=== PATIENT | female | born 1975 | race Hispanic/Latino ===

== ENCOUNTER 2016-08-15 09:34 | Emergency (ER) | payer MEDICAID ==
[2016-08-15 09:46] VITALS: BP 132/81
[2016-08-15] MEDS ORDERED: TORADOL IM ONE (10:03)
[2016-08-15] MEDS ORDERED: FLEXERIL PO ONE (10:04)
[2016-08-15] MEDS ORDERED: NORCO 7.5/325 PO ONE (10:04)
[2016-08-15] MEDS ORDERED: DELTASONE PO ONE (10:04)
--- NOTE | 2016-08-15 10:10 | Emergency Department Report ---
ED Back Pain/Injury HPI - General Chief Complaint: Back Pain/Injury Stated Complaint: LOWER BACK PAIN Time Seen by Provider: 08/15/16 10:03 Source: patient Limitations: No Limitations - History of Present Illness -: Gradual Similar Symptoms Previously: Yes Radiation: buttocks Severity: moderate Quality: sharp Consistency: constant Improves With: immobilization Worsens With: movement Associated Symptoms: denies other symptoms - Related Data Home Medications Medication Instructions Recorded Confirmed Last Taken Gabapentin [Neurontin] 400 mg PO TID 08/04/14 08/15/16 Unknown Previous Rx's Medication Instructions Recorded Last Taken Type Methocarbamol [Robaxin TAB] 750 mg PO Q8H PRN #20 tablet 08/15/16 Unknown Rx Prednisone [predniSONE 10 mg 10 mg PO .TAPER #1 tab.ds.pk 08/15/16 Unknown Rx (6-Day Pack, 21 Tabs)] Allergies Allergy/AdvReac Type Severity Reaction Status Date / Time No Known Allergies Allergy Verified 08/15/16 09:41 ED Review of Systems ROS: Stated complaint: LOWER BACK PAIN Other details as noted in HPI Patient complaining of nonradiating left lower back pain that gets worse with movement. Patient denies abdominal pain, nausea, vomiting, dysuria, abnormal vaginal discharge, or dyspareunia. Comment: All other systems reviewed and negative Constitutional: no symptoms reported Respiratory: no symptoms reported Cardiovascular: denies: chest pain, palpitations, dyspnea on exertion Gastrointestinal: denies: abdominal pain, nausea, vomiting, diarrhea, constipation Genitourinary: denies: urgency, dysuria, frequency, hematuria, discharge, abnormal menses, dyspareunia Musculoskeletal: back pain. denies: joint swelling, arthralgia, myalgia Skin: denies: rash, lesions Neurological: denies: headache, weakness, numbness, paresthesias, confusion, abnormal gait, vertigo ED Past Medical Hx - Past Medical History Hx Liver Disease: Yes (HEPATITIS C) Hx Arthritis: Yes Hx Seizures: Yes (x 1 from xanax withdrawl) Additional medical history: lumbar disc disease. NEUROPATHY - Surgical History Additional Surgical History: TUBAL LIGATION - Social History Smoking Status: Current Every Day Smoker Substance Use Type: Prescribed - Medications Home Medications: Home Medications Medication Instructions Recorded Confirmed Last Taken Type Gabapentin [Neurontin] 400 mg PO TID 08/04/14 08/15/16 Unknown History Methocarbamol [Robaxin TAB] 750 mg PO Q8H PRN #20 tablet 08/15/16 Unknown Rx Prednisone [predniSONE 10 mg 10 mg PO .TAPER #1 tab.ds.pk 08/15/16 Unknown Rx (6-Day Pack, 21 Tabs)] ED Physical Exam - General Limitations: No Limitations General appearance: alert, in no apparent distress - Head Head exam: Present: atraumatic - Eye Eye exam: Present: normal appearance, PERRL, EOMI Pupils: Present: normal accommodation - Neck Neck exam: Present: normal inspection, full ROM. Absent: tenderness, meningismus - Respiratory Respiratory exam: Present: normal lung sounds bilaterally. Absent: respiratory distress - Cardiovascular Cardiovascular Exam: Present: regular rate - GI/Abdominal GI/Abdominal exam: Present: soft. Absent: distended, tenderness, guarding, rebound, rigid - Extremities Exam Extremities exam: Present: normal inspection, full ROM, normal capillary refill. Absent: tenderness, pedal edema, joint swelling, calf tenderness - Back Exam Back exam: Present: paraspinal tenderness, other (no vertebral point tenderness. Patient does have right sided SI tenderness. Positive straight leg raise at 10 for both left and right legs.). Absent: CVA tenderness (R), CVA tenderness (L), muscle spasm - Neurological Exam Neurological exam: Present: alert, oriented X3, normal gait. Absent: altered - Skin Skin exam: Present: warm, dry, intact, normal color. Absent: rash ED Course Vital Signs 08/15/16 08/15/16 08/15/16 09:43 10:12 10:13 Temperature 98.1 F Pulse Rate 85 Respiratory 17 16 16 Rate Blood Pressure 132/81 O2 Sat by Pulse 100 Oximetry 08/15/16 08/15/16 10:42 11:13 Temperature Pulse Rate Respiratory 16 16 Rate Blood Pressure O2 Sat by Pulse Oximetry Critical care attestation.: If time is entered above; I have spent that time in minutes in the direct care of this critically ill patient, excluding procedure time. ED Disposition Clinical Impression: Low back pain Disposition: DISCHARGED TO HOME OR SELFCARE Is pt being admited?: No Condition: Stable Instructions: Low Back Strain (ED) Prescriptions: Methocarbamol [Robaxin TAB] 750 mg PO Q8H PRN #20 tablet PRN Reason: Pain Prednisone [predniSONE 10 mg (6-Day Pack, 21 Tabs)] 10 mg PO .TAPER #1 tab.ds.pk Referrals: PRIMARY CARE, [Primary Care Provider] - 3-5 Days
[2016-08-15 11:17] LABS: Bilirubin,Urine NEG (Negative); Blood,Urine LG (Negative); Ketones,Urine NEG (Negative); Leukocyte Esterase,Urine TR (Negative); Mucus,Urine FEW /HPF; Nitrite,Urine NEG (Negative)
[2016-08-15 11:20] LABS: RBC,Urine > 182.0 /HPF (0.0-6.0)
== END 2016-08-15 11:40 | disposition home or self-care (01) ==
LOC: ED 09:34
DX: M54.5 Low back pain (principal); R53.1 Weakness; R56.9 Unspecified convulsions; F17.200 Nicotine dependence, unspecified, uncomplicated
CPT/HCPCS: 81001; 96372; 99283; J1885; J7512